=== PATIENT | male | born 1970 | race Caucasian/White ===

== ENCOUNTER 2020-03-19 10:29 | Emergency (ER) | payer SELFPAY ==
[~2020-03-19] VITALS: Ht 170.2 cm; Wt 95.3 kg
--- NOTE | 2020-03-19 10:29 | NUR ---
PT SERA FROM THE STREET C/O ETOH. 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 WILLCONTINUE TO MONITOR.
--- NOTE | 2020-03-19 10:39 | NUR ---
SEEN AND EXMAINED BY .
[2020-03-19] MEDS ORDERED: HALOPERIDOL LACTATE INJ 5 MG/ML VIAL ONE (10:40)
[2020-03-19] MEDS ORDERED: LORAZEPAM INJ 2 MG/ML VIAL ONE (10:41)
--- NOTE | 2020-03-19 10:55 | NUR ---
URINAL GIVEN BUT UNABLE TO PROVIDE URINE SPECIMEN THIS TIME.
--- NOTE | 2020-03-19 10:57 | NUR ---
ER PHLEB AT BEDSIDE FOR BLOOD DRAW.
[2020-03-19] MEDS ORDERED: HALOPERIDOL LACTATE INJ 5 MG/ML VIAL IM ONE (11:00)
[2020-03-19] MEDS ORDERED: LORAZEPAM INJ 2 MG/ML VIAL IM ONE (11:00)
[2020-03-19 11:10] LABS: BASOPHILS # (AUTO) 0.2 /CMM (0.0-0.2); BASOPHILS % (AUTO) 3.1 % (0.0-2.0); EOSINOPHILS % (AUTO) 0.6 % (0.0-6.0); HEMATOCRIT 45 % (39-51); HEMOGLOBIN 15.2 g/dL (13.5-17.5); LYMPHOCYTES # (AUTO) 1.6 /CMM (0.8-4.8); LYMPHOCYTES % (AUTO) 29.7 % (20.0-44.0); MEAN CORPUSCULAR HGB CONC 34 g/dl (31.0-36.0); MEAN CORPUSCULAR VOLUME 96 fL (80-96); MONOCYTES # (AUTO) 0.5 /CMM (0.1-1.30); MONOCYTES % (AUTO) 8.8 % (2.0-12.0); NEUTROPHILS # (AUTO) 3.2 /CMM (1.8-8.9); NEUTROPHILS % (AUTO) 57.8 % (43.0-81.0); PLATELET COUNT (AUTO) 223 /CMM (150-450); RED BLOOD CELL COUNT(AUTO) 4.64 MIL/uL (4.5-6.0); WHITE BLOOD COUNT (AUTO) 5.6 K/uL (4.3-11.0)
[2020-03-19 11:16] LABS: CARBON DIOXIDE 23 mmol/L (21-32); CHLORIDE 100 mmol/L (98-107); CREATININE 0.8 mg/dL (0.6-1.3); GLUCOSE 113 mg/dL (74-106); POTASSIUM 3.9 mmol/L (3.5-5.1); SODIUM SERUM 136 mmol/L (136-145); UREA NITROGEN, BLOOD 8 mg/dL (7-18)
[2020-03-19 11:31] LABS: ALANINE AMINOTRANSFERASE 371 U/L (12-78); ALKALINE PHOSPHATASE 91 U/L (46-116); ASPARTATE AMINOTRANSFERASE 319 U/L (15-37); BILIRUBIN,DIRECT 0.2 mg/dL (0.0-0.2); BILIRUBIN,TOTAL 0.4 mg/dL (0.2-1.0); SALICYLATE 4.5 mg/dL (2.8-20.0); TOTAL PROTEIN, SERUM 7.6 g/dL (6.4-8.2)
[2020-03-19 11:32] LABS: ACETAMINOPHEN < 2 ug/ml (10-30); ALCOHOL, BLOOD 542 mg/dL (0-0)
--- NOTE | 2020-03-19 16:01 | NUR ---
ASSESSED PT ON BED AWAKE AND ALERT, NOT IN RESPIRATORY DISTRESS, V/S STABLE, KEPT RESTED AND COMFORTABLE. WILL CONTINUE TO MONITOR.
--- NOTE | 2020-03-19 17:30 | NUR ---
PT PROVIDED WITH A MEAL
--- NOTE | 2020-03-19 18:05 | NUR ---
ASSESSED PT ON BED AWAKE AND ALERT, NOT IN RESPIRATORY DISTRESS, V/S STABLE, KEPT RESTED AND COMFORTABLE. WILL CONTINUE TO MONITOR.
--- NOTE | 2020-03-19 18:56 | NUR ---
PT IS AWAKE, ALERT AND ORIENTED. VERBALIZES THAT HE FEELS BETTER AND WOULD LIKE TOP GO HOME. PT AMBULATED ON STEADY GAIT. PROVIDED WITH WATER.
--- NOTE | 2020-03-19 20:10 | NUR ---
Patient discharged to home in stable condition. Written and verbal after care instructions given. Patient verbalizes understanding of instruction. Pt ambulatory with a steady gait
[2020-03-19 20:12] VITALS: BP 132/78
== END 2020-03-19 20:12 | disposition home or self-care (01) ==
LOC: ER 10:29
DX: F10.10 Alcohol abuse, uncomplicated (principal); R41.82 Altered mental status, unspecified; R45.1 Restlessness and agitation; Y90.8 Blood alcohol level of 240 mg/100 ml or more
CPT/HCPCS: 36415; 80048; 80076; 80307 ×2; 80329; 82962; 85025; 96372 ×2; 99285; G0480; J1630; J2060